=== PATIENT | female | born 1960 | race Caucasian/White ===

== ENCOUNTER 2019-12-03 11:39 | Emergency (ER) | payer BC ==
--- NOTE | 2019-12-03 12:21 | EDM.PDOC ---
ED HPI GENERAL MEDICAL PROBLEM - General Chief Complaint: Lower Extremity Injury/Pain Stated Complaint: L ANKLE INJURY Time Seen by Provider: 12/03/19 12:17 Source of Information: Reports: Patient, RN Notes Reviewed History Limitations: Reports: No Limitations - History of Present Illness INITIAL COMMENTS - FREE TEXT/NARRATIVE: 59-year-old female presents emergency department today complaint of left ankle pain, she injured herself when she stepped off a tailgate and had a twisting injury to the inside, cannot bear weight due to significant pain Left Foot Pain Score (Numeric/FACES): 5 - Related Data Allergies Allergy/AdvReac Type Severity Reaction Status Date / Time No Known Allergies Allergy Verified 12/03/19 12:07 Home Meds: Home Meds Biotin 1 tab PO DAILY 12/03/19 [History] Calcium Carb/D3/Magnesium/Zinc [[place] Mag Zinc + D Tablet] 1 tab PO DAILY 12/03/19 [History] Cholecalciferol (Vitamin D3) [Vitamin D3] 1 tab PO DAILY 12/03/19 [History] Escitalopram [Lexapro] 10 mg PO DAILY 12/03/19 [History] Fish Oil/[place]-3 Fatty Acids [Fish Oil 1,000 MG] 1 gm PO DAILY 12/03/19 [History] Lansoprazole [Prevacid] 30 mg PO DAILY 12/03/19 [History] Multivitamin [Multiple Vitamins] 1 tab PO DAILY 12/03/19 [History] Past Medical History HEENT History: Reports: Impaired Vision Other HEENT History: wears glasses Gastrointestinal History: Reports: GERD SKIRT CLIPPER History: Reports: Dysfunctional Uterine Bleeding Endocrine/Metabolic History: Reports: Hypothyroidism Oncologic (Cancer) History: Reports: Cervix - Infectious Disease History Infectious Disease History: Reports: Chicken Pox - Past Surgical History HEENT Surgical History: Reports: Oral Surgery GI Surgical History: Reports: Colonoscopy, Hernia, Abdominal Female Surgical History: Reports: D&C, Hysterectomy, Other (See Below) Other Female Surgeries/Procedures: cervical cancer Endocrine Surgical History: Reports: Thyroid Biopsy Oncologic Surgical History: Reports: Other (See Below) Other Oncologic Surgeries/Procedures: hysterectomy Dermatological Surgical History: Reports: None Social & Family History - Tobacco Use Smoking Status *Q: Never Smoker Review of Systems - Review of Systems Review Of Systems: See Below Constitutional: Reports: No Symptoms Musculoskeletal: Reports: Joint Pain (Left ankle pain) Skin: Reports: No Symptoms Neurological: Reports: No Symptoms ED EXAM, GENERAL - Physical Exam Exam: See Below Free Text/Narrative:: Examination of the ankle I do not appreciate any erythema there is no edema no ecchymosis she has full range of motion of all digits she has limited range of motion dorsiflexion of the ankle however does cause pain anterior drawer and tilt test do not elicit pain no pain to palpation pedal pulses +2 Exam Limited By: No Limitations General Appearance: Alert, WD/WN, No Apparent Distress Course - Vital Signs Last Recorded V/S: Last Vital Signs Temp 96.0 F L 12/03/19 12:17 Pulse 108 H 12/03/19 14:53 Resp 18 12/03/19 12:17 BP 155/94 H 12/03/19 14:53 Pulse Ox 98 12/03/19 14:53 - Orders/Labs/Meds Orders: Active Orders 24 hr Category Date Time Status DME for Discharge [COMM] Per Unit Routine Oth 12/03/19 15:11 Ordered Meds: Medications Discontinued Medications Generic Name Dose Route Start Last Admin Trade Name Leatha PRN Reason Stop Dose Admin Ketorolac Tromethamine 60 mg 12/03/19 15:06 Toradol IM 12/03/19 15:07 ONETIME ONE Departure - Departure Time of Disposition: 15:13 Disposition: Home, Self-Care 01 Condition: Fair Clinical Impression: Left ankle sprain Qualifiers: Encounter type: initial encounter Involved ligament of ankle: unspecified ligament Qualified Code(s): S93.402A - Sprain of unspecified ligament of left ankle, initial encounter - Discharge Information Instructions: Ankle Sprain, [id number] Referrals: PCP,None [Primary Care Provider] - Forms: ED Department Discharge Additional Instructions: Continue to use the walking boot as needed for comfort follow-up with your primary care upon return home Sepsis Event Note (ED) - Evaluation Sepsis Screening Result: No Definite Risk - Focused Exam Vital Signs: Vital Signs Temp Pulse Resp BP Pulse Ox 12/03/19 14:53 108 H 155/94 H 98 12/03/19 12:17 96.0 F L 101 H 18 152/98 H 100 12/03/19 12:09 96.0 F L 101 H 18 152/98 H 100 - My Orders Last 24 Hours: My Active Orders 07/03/20 15:11 DME for Discharge [COMM] Per Unit Routine - Assessment/Plan Last 24 Hours: My Active Orders 12/03/19 15:11 DME for Discharge [COMM] Per Unit Routine Plan: Assessment Acuity = acute Site and laterality = ankle sprain Etiology = secondary to trauma Manifestations = pain Location of injury = Home Lab values = x-ray of the ankle and foot show no fracture or abnormal alignment Plan She is placed in a walking boot Tylenol Motrin as needed for pain control follow-up with primary care upon return home This note was dictated using [employer] voice recognition software please call with any questions on syntax or grammar.
--- NOTE | 2019-12-03 13:41 | CRLCR ---
INDICATION: trauma, pain in mid foot up to ankle TECHNIQUE: Three views of left foot. COMPARISON: None available. FINDINGS: No definite acute ankle fracture. The talar dome is intact. The ankle mortise appears anatomically aligned. Possible soft tissue swelling over the dorsum of the midfoot. The alignment of the tarsal bones with the metatarsals is unclear which may be due to the projection. Additionally, a tiny mere of high density is seen between the proximal 3rd and 4th metatarsal of unknown etiology and significance. IMPRESSION: 1. No definite acute ankle fracture. 2. The alignment of the tarsal bones with the metatarsals is unclear which may be due to the projection. Additionally, a tiny mere of high density is seen between the proximal 3rd and 4th metatarsal of unknown etiology and significance. Recommend obtaining images of the foot. Dictated by Stevie Rosen MD @ Dec 03 2019 1:21PM (Electronically Signed)
--- NOTE | 2019-12-03 14:55 | CRLCR ---
INDICATION: pain, trauma INDICATION: Pain, trauma. TECHNIQUE: Left foot, three views. COMPARISON: Left ankle, three views 12/03/2019. FINDINGS: Bones: Alignment is normal. No fractures or bone lesions. Joint spaces: Unremarkable. Soft tissues: Unremarkable. IMPRESSION: 1. There is no fracture identified at the left foot. 2. LisFranc joint is in anatomic alignment. Dictated by Quique Weaver MD @ 12/03/2019 2:53:42 PM Dictated by: Quique Weaver MD @ 12/03/2019 14:53:56 (Electronically Signed)
[2019-12-03] MEDS ORDERED: Ketorolac 60 MG/2 ML SDV IM ONE (15:06)
== END 2019-12-03 15:49 | disposition home or self-care (01) ==
LOC: JP.ED 11:39
DX: S93.402A Sprain of unspecified ligament of left ankle, initial encounter (principal); K21.9 Gastro-esophageal reflux disease without esophagitis; Z79.899 Other long term (current) drug therapy; X50.1XXA Overexertion from prolonged static or awkward postures, initial encounter
CPT/HCPCS: 73610-LT; 73630-LT; 99283-25